=== PATIENT | female | born 1985 | race Caucasian/White ===

== ENCOUNTER 2016-07-27 21:04 | Emergency (ER) | payer MEDICARE, OTHER ==
[~2016-07-27 21:04] MED LIST: ANTIVERT PO; AUGMENTIN PO; BENZONATATE PO; COMPAZINE10 M1 PO; FEOSOL PO; FIORICET 50-321 EACH PO; FOLIC ACID PO; IRON SUPPLEMENT1 TAB PO; LEVAQUIN750 MG PO; LIPITOR20 MG PO; LORTAB 10-3251 EACH PO; LORTAB 5/500 TA1 TA1 PO; MOTRIN600 MG PO; MULTI VITAMIN1 EACH PO; PHENERGAN25 MG PO; PREDNISONE10 MG PO; PRENATAL MULITV1 TAB PO; PRILOSEC20 MG PO; PROVENTIL INH0.5 ML HHN; THORAZINE25 MG PO; VICODIN 5/1 TAB 5/50 PO; ZOFRAN PO; ZYRTEC PO
== END 2016-07-27 23:48 | disposition home or self-care (01) ==
LOC: CFTX 21:04 → CED 21:04 → CFTX 22:42
DX: H10.31 Unspecified acute conjunctivitis, right eye (principal); F41.9 Anxiety disorder, unspecified; F32.9 Major depressive disorder, single episode, unspecified; I10 Essential (primary) hypertension
CPT/HCPCS: 99283

== ENCOUNTER 2016-09-13 21:31 | Emergency (ER) | payer MEDICARE, OTHER ==
[~2016-09-13] VITALS: Ht 165.1 cm; Wt 149.7 kg
[2016-09-13] MEDS ORDERED: LIPITOR20 MG PO (21:51)
[2016-09-13] MEDS ORDERED: HYDROCODON-ACE1 EAC5 PO (21:52)
[2016-09-13] MEDS ORDERED: FERROUS SULFAT324 MG PO (21:52)
== END 2016-09-13 23:59 | disposition home or self-care (01) ==
LOC: SED 21:31
DX: R21 Rash and other nonspecific skin eruption (principal); E78.5 Hyperlipidemia, unspecified; F41.9 Anxiety disorder, unspecified; F32.9 Major depressive disorder, single episode, unspecified; Z79.899 Other long term (current) drug therapy
CPT/HCPCS: 99282

== ENCOUNTER → 2016-10-08 | Outpatient (CLI) | payer MEDICARE, OTHER ==
[~2016-10-08] MED LIST changes: +FERROUS SULFAT324 MG PO; +HYDROCODON-ACE1 EAC5 PO
--- NOTE | ~2016-10-08 | CR21 ---
[facility] A Service of [facility] [place] & [facility] RADIOLOGY TEXT RESULTS PATIENT: JED ABBOTT LOCATION: [facility] : [birth year] UNIT #: [id number] AGE: [address]: Pippa Damon APRN SEX: F ORDER DR: [id number] [facility] [address] [place], [place] [address] [id number] O MR#: [id number] Acc #: [id number] NAME: JED ABBOTT : 1985 SEX: F STUDY DATE/TIME: 10/08/2016 10:17 UNIT: [facility] ROOM: STUDY DESCRIPTION: CR Ankle Min 3 Views Rt Attending Physician: Pippa Damon A.P.R.N. Referring Physician: Pippa Damon A.P.R.N. Ordering Physician: Pippa Damon A.P.R.N. Primary Care Physician: Matt Peace M.D. MEDICAL IMAGING REPORT This report is preliminary unless electronic signature is present EXAM Right ankle 3 views 10/08/2016 HISTORY Pain lateral aspect of right ankle for 2 weeks. FINDINGS 3 views of the right ankle demonstrate no acute fracture. There is a surgical clip in place within the distal aspect of the right fibula. The bones are normally mineralized. The ankle mortise is intact. There is no soft tissue abnormality. IMPRESSION Postsurgical changes involving the distal fibula. No acute abnormality. Dictated by... Manjinder Montreo M.D. THIS IS AN ELECTRONICALLY VERIFIED REPORT Manjinder Montero M.D. at 10/11/2016 2:10 PM KRT/pcl TD: 10/08/2016 22:14 JOB #: [id number] MEDICAL IMAGING REPORT Page 1 of 1 COPY
== END | disposition home or self-care (01) ==
LOC: CRAD 09:42
DX: M25.571 Pain in right ankle and joints of right foot (principal); Z98.890 Other specified postprocedural states
CPT/HCPCS: 73610